=== PATIENT | male | born 1995 | race Hispanic/Latino ===

== ENCOUNTER 2022-12-26 16:32 | Emergency (ER) | payer SELFPAY ==
[2022-12-26] MEDS ORDERED: Boostrix 0.5 ML (Tdap) VIAL (>/=7 yrs of age) ONE (17:52)
[2022-12-26] MEDS ORDERED: Lidocaine 1% (PF) 30 ML VIAL ONE (17:52)
== END 2022-12-26 19:05 | disposition home or self-care (01) ==
LOC: NAV ERS 16:32
DX: S61.217A Laceration without foreign body of left little finger without damage to nail, initial encounter (principal); W26.0XXA Contact with knife, initial encounter
CPT/HCPCS: 12042; 90471; 90715; J2001